=== PATIENT | female | born 1980 ===

== ENCOUNTER 2021-11-06 19:58 | Emergency (ER) | payer BC ==
[~2021-11-06] VITALS: Ht 172.7 cm; Wt 65.8 kg
[2021-11-06] MEDS ORDERED: ASPIRIN 81 MG TAB.CHEW PO ONE (20:15)
--- NOTE | 2021-11-06 20:22 | NUR ---
Jeronimo PORTILLO AT BEDSIDE,MSE IN PROGRESS.
[2021-11-06] MEDS ORDERED: HYDR-4209 PO (21:27)
[2021-11-06] MEDS ORDERED: ALPR0.25 PO (21:27)
--- NOTE | 2021-11-06 21:40 | NUR ---
Patient does not wish to proceed with medical care recommended by Rupert Parson. Patient given information related to possible complications, up to and including , which could occur as a result of leaving the hospital at this time. Patient verbalizes understanding of risks involved due to leaving against medical advice. Patient has signed AMA form. A/O x4, no SOB or labored breathing. Denies any CP/pressure upon discharge. Steady gait. Picked up by family.
[2021-11-06 21:41] VITALS: BP 131/81
== END 2021-11-06 21:41 | disposition left against medical advice (07) ==
LOC: ER 19:59
DX: R09.1 Pleurisy (principal)
CPT/HCPCS: 71045; 93005; A4663